=== PATIENT | female | born 2000 ===

== ENCOUNTER 2022-12-15 14:20 | Emergency (ER) | payer MEDICAID ==
[2022-12-15 15:44] VITALS: BP 112/55; PULSE 76
== END 2022-12-15 15:35 | disposition home or self-care (01) ==
LOC: MW.ED 14:20
DX: J02.9 Acute pharyngitis, unspecified (principal); H10.9 Unspecified conjunctivitis; Z79.899 Other long term (current) drug therapy; Z88.1 Allergy status to other antibiotic agents
CPT/HCPCS: 87651-QW; 99282; 99283